=== PATIENT | female | born 1945 | race Caucasian/White ===

== ENCOUNTER 2021-04-04 10:52 | Inpatient (IN) | payer OTHER ==
[2021-04-04 11:37] LABS: Basophils % 0.2 % (0-1.3); Hematocrit 43.4 % (36.0-45.0); MPV 6.9 fL (7.6-11.3)
[2021-04-04 11:40] LABS: Protime INR 0.99
[2021-04-04 11:58] LABS: ALT/SGPT 19 U/L (12-78); AST/SGOT 11 U/L (15-37); Albumin 3.6 g/dL (3.4-5.0); Alkaline Phosphatase 63 U/L (45-117); BUN Blood Urea Nitrogen 14 mg/dL (7-18); Bicarbonate 28 mmol/L (21-32); Bilirubin Direct 0.1 mg/dL (0-0.2); Bilirubin Total 0.3 mg/dL (0.2-1.0); Glucose Level 105 mg/dL (74-106); Magnesium 2.1 mg/dL (1.8-2.4); NT PRO-BNP 159 pg/mL (<450); Potassium 3.9 mmol/L (3.5-5.1); Protein, Total 7.6 g/dL (6.4-8.2); Sodium Level 142 mmol/L (136-145); Troponin (Emerg Dept Use Only) < 0.02 ng/mL (0.0-0.045)
--- NOTE | 2021-04-04 12:13 | RAD REPORT ---
EXAM DESCRIPTION: Piedad Single View04/04/2021 11:48 am CLINICAL HISTORY: Chest pain COMPARISON: none FINDINGS: The bilateral interstitial lung opacities probably are chronic. The lungs appear clear of acute infiltrate. The heart is probably mildly enlarged IMPRESSION: No acute abnormalities displayed
--- NOTE | 2021-04-04 13:23 | ER ---
Nurse's Notes [facility] Name: Maritza Ulrich Age: 75 yrs Sex: Female : 1945 Arrival Date: 04/04/2021 Time: 10:54 Bed 30 Private MD: Alicia Castillo Diagnosis: Unstable angina;Chest pain, unspecified Presentation: 04/04 11:05 Chief complaint: Patient states: Mid chest pressure off/on for 2-3 weeks. Awoke at 2 am ll1 with CP and arms tingling, hands feel cold. "Sinus thing" started yesterday with slight cough. Coronavirus screen: Vaccine status: Patient reports being unvaccinated. Client denies travel out of the [place] in the last 14 days. congestion, cough unrelated to allergies, Client presents with at least one sign or symptom that may indicate coronavirus-19. Standard/surgical mask placed on the client. Ebola Screen: Patient denies travel to an Ebola-affected area in the 21 days before illness onset. Initial Sepsis Screen: Does the patient meet any 2 criteria? No. Patient's initial sepsis screen is negative. Does the patient have a suspected source of infection? No. Patient's initial sepsis screen is negative. Risk Assessment: Do you want to hurt yourself or someone else? Patient reports no desire to harm self or others. Onset of symptoms was March 21, 2021. 11:05 Method Of Arrival: Ambulatory ll1 11:05 Acuity: JUANITA 3 ll1 Triage Assessment: 11:44 General: Appears in no apparent distress. comfortable, slender, well groomed, Behavior jh5 is calm, cooperative. Pain: Complains of pain in chest. Historical: - Allergies: 11:02 Iodinated Contrast Media - IV Dye; ll1 - PMHx: 11:02 Hypothyroidism; ll1 - PSHx: 11:02 None; ll1 - Immunization history:: Client reports having NOT received the Covid vaccine. - Social history:: Smoking status: Patient denies any tobacco usage or history of. - Family history:: not pertinent. - Hospitalizations: : No recent hospitalization is reported. Screenin:35 Abuse screen: Denies threats or abuse. Denies injuries from another. Nutritional ss screening: No deficits noted. Tuberculosis screening: Never had TB. 11:44 Fall Risk Secondary diagnosis (15 points) intermediate onset chest pain. . IV access jh5 (20 points). Assessment: 11:27 Pain: Pain radiates to chest Pain began suddenly, on and off x3 weeks. Cardiovascular: jh5 Reports chest pain, Capillary refill < 3 seconds Patient's skin is warm and dry. 18:06 Reassessment: Report given to second floor rn who did not disclose his (male) name. jh5 Information from SBAR given to RN regarding pt. 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 Pt to be transported upstairs at this time; pt is Vitally stable, AAOX4, speech is clear and in NAD. Vital Signs: 11:05 Weight 68.95 kg; Height 5 ft. 4 in. (162.56 cm); Pain 2/10; ll1 11:14 BP 156 / 76; Pulse 67; Resp 18; Temp 98.4; Pulse Ox 100% ; jh5 12:22 Pulse 58; Resp 15; Pulse Ox 98% ; jh5 13:37 BP 134 / 78; Pulse 68; Resp 18; Pulse Ox 100% ; jh5 16:18 BP 155 / 53; Pulse 67; Resp 15; Pulse Ox 98% ; jh5 18:12 BP 136 / 68; Pulse 67; Resp 18; Pulse Ox 98% ; jh5 11:05 Body Mass Index 26.09 (68.95 kg, 162.56 cm) ll1 ED Course: 10:54 Patient arrived in ED. as 10:54 Nahid Lewis MD is Private Physician. as 10:54 Alicia Castillo MD is Private Physician. as 10:58 Rolando Barber MD is Attending Physician. rn 11:02 Arm band placed on Patient placed in an exam room, on a stretcher. ll1 11:07 Triage completed. ll1 11:28 Patient maintains SpO2 saturation greater than 95% on room air. jh5 11:29 No provider procedures requiring assistance completed. jh5 11:35 Patient has correct armband on for positive identification. Bed in low position. Call ss light in reach. residential monitor on. Pulse ox on. NIBP on. 11:35 Inserted saline lock: 22 gauge in left antecubital area, using aseptic technique. Blood ss collected. 11:48 XRAY Chest (1 view) In Process Unspecified. EDMS 13:22 Elizabeth Cat MD is Hospitalizing Provider. rn 15:58 Elizabeth Cat MD is Hospitalizing Provider. rn Administered Medications: 13:36 Drug: Aspirin Chewable Tablet 324 mg Route: PO; [facility] Outcome: 11:44 Condition: good [facility] 11:44 Instructed on the need for admit, safety practices, Need for COVID swab 15:59 Decision to Hospitalize by Provider. rn 18:32 Patient left the ED. ss Signatures: Dispatcher [employer] EDMS Caroline Hoff Roman, MD MD rn Smirch, Shelby, RN RN ss Lewis, Lynsay, RN RN 1 Lyla Conn RN RN 5 Corrections: (The following items were deleted from the chart) 11:05 11:02 Allergies: Iodine; ll1 ll1 15:48 15:44 Patient did not have IV access during this emergency room visit. [place] [id number] 15:48 13:22 Decision to Hospitalize by Provider. rn [facility] 15:48 15:44 Discharged to home ambulatory, with family, [place] [id number] 15:48 15:46 Discharge ordered by . [place] [id number] 15:48 15:46 Patient left the ED. [place] [id number]
--- NOTE | 2021-04-04 13:23 | EDPHYS ---
Physician Documentation [facility] Name: Maritza Ulrich Age: 75 yrs Sex: Female : 1945 Arrival Date: 04/04/2021 Time: 10:54 Bed 30 Private MD: Alicia Castillo ED Physician Rolando Barber HPI: 04/04 11:14 This 75 yrs old Female presents to ER via Ambulatory with complaints of Chest rn Pain, Numbness Of Arm. 11:14 The patient or guardian reports chest pain that is located primarily in the substernal rn area. Onset: 2 week(s) ago. The pain radiates to both arms. Associated signs and symptoms: Pertinent positives: shortness of breath, Pertinent negatives: abdominal pain, cough, diaphoresis, dizziness, lower extremity swelling, nausea, palpitations. The chest pain is described as a pressure. Duration: The patient or guardian reports multiple episodes, that are intermittent, the episodes last approximately 15 minute(s). Modifying factors: The symptoms are alleviated by nothing. the symptoms are aggravated by exertion. Severity of pain: At its worst the pain was moderate in the emergency department the pain has improved. The patient has not experienced similar symptoms in the past. The patient has not recently seen a physician. Patient reports substernal chest pressure that radiates to both arms, intermittent and lasting approximately 15 minutes is over the last 2 weeks. No fever. No trauma. Reports associated shortness of breath with episodes. Last had a heart cath 5 years ago and had a nonstent to the lesion. Reports increasing in occurrence and frequency.. Historical: - Allergies: 11:02 Iodinated Contrast Media - IV Dye; ll1 - PMHx: 11:02 Hypothyroidism; ll1 - PSHx: 11:02 None; ll1 - Immunization history:: Client reports having NOT received the Covid vaccine. - Social history:: Smoking status: Patient denies any tobacco usage or history of. - Family history:: not pertinent. - Hospitalizations: : No recent hospitalization is reported. ROS: 11:14 Constitutional: Negative for fever, chills, and weight loss, Eyes: Negative for injury, rn pain, redness, and discharge, Neck: Negative for injury, pain, and swelling, Cardiovascular: Positive for chest pain Respiratory: Positive for shortness of breath Abdomen/GI: Negative for abdominal pain, nausea, vomiting, diarrhea, and constipation, Back: Negative for injury and pain, : Negative for injury, bleeding, discharge, and swelling, MS/Extremity: Negative for injury and deformity, Skin: Negative for injury, rash, and discoloration, Neuro: Negative for headache, weakness, numbness, tingling, and seizure. Exam: 11:12 ECG was reviewed by the Attending Physician. rn 11:14 Constitutional: This is a well developed, well nourished patient who is awake, alert, rn and in no acute distress. Ambulatory to room Head/Face: Normocephalic, atraumatic. Eyes: Pupils equal round and reactive to light, extra-ocular motions intact. Lids and lashes normal. Conjunctiva and sclera are non-icteric and not injected. Cornea within normal limits. Periorbital areas with no swelling, redness, or edema. ENT: No stridor Cardiovascular: Regular rate and rhythm. No pulse deficits. Respiratory: No increased work of breathing, no retractions or nasal flaring. Abdomen/GI: Soft, non-tender Skin: Warm, dry MS/ Extremity: Pulses equal, no cyanosis Neuro: Awake and alert, GCS 15 Vital Signs: 11:05 Weight 68.95 kg; Height 5 ft. 4 in. (162.56 cm); Pain 2/10; ll1 11:14 BP 156 / 76; Pulse 67; Resp 18; Temp 98.4; Pulse Ox 100% ; jh5 12:22 Pulse 58; Resp 15; Pulse Ox 98% ; jh5 13:37 BP 134 / 78; Pulse 68; Resp 18; Pulse Ox 100% ; jh5 16:18 BP 155 / 53; Pulse 67; Resp 15; Pulse Ox 98% ; jh5 18:12 BP 136 / 68; Pulse 67; Resp 18; Pulse Ox 98% ; jh5 11:05 Body Mass Index 26.09 (68.95 kg, 162.56 cm) ll1 MDM: 10:58 Patient medically screened. rn 13:18 Differential diagnosis: acute myocardial infarction, coronary artery disease pleurisy, rn pneumonia, pneumothorax, stable angina, unstable angina. HEART Score: History: Highly Suspicious (2), ECG: Normal (0), Age: > or = 65 years (2), Risk Factors: 1 or 2 risk factors (1), Troponin: < or = 1 x Normal Limit (0), Total Score = 5. The patient was given aspirin in the Emergency Department. JEFERSON Risk Score: 1 - patient's age is greater or equal to 65 years. Data reviewed: vital signs, nurses notes, lab test result(s), EKG, radiologic studies, plain films, and as a result, I will admit patient. 13:21 Data interpreted: gambling monitor: rate is 58 beats/min, rhythm is sinus bradycardia, rn with no ectopy, Interpretation: bradycardia, Pulse oximetry: on room air is 98 %. Interpretation: normal. Counseling: I had a detailed discussion with the patient and/or guardian regarding: the historical points, exam findings, and any diagnostic results supporting the discharge/admit diagnosis, lab results, radiology results, the need for further work-up and treatment in the hospital. Admission orders: after a detailed discussion of the patient's condition and case, the admit orders are written by me. Special discussion:. 15:39 ED course: Pt notified by registration that her insurance would pay 60% of admission, rn patient states ok being admitted here and will pay the difference. . 04/04 11:09 Order name: Basic Metabolic Panel; Complete Time: 12:55 rn 04/04 11:09 Order name: CBC with Diff; Complete Time: 12:55 rn 04/04 11:09 Order name: LFT's; Complete Time: 12:55 rn 04/04 11:09 Order name: Magnesium; Complete Time: 12:55 rn 04/04 11:09 Order name: NT PRO-BNP; Complete Time: 12:55 rn 04/04 11:09 Order name: PT-INR; Complete Time: 12:55 rn 04/04 11:09 Order name: Troponin (emerg Dept Use Only); Complete Time: 12:55 rn 04/04 11:09 Order name: COVID-19 SARS RT PCR (Document "Date of Onset" if Symptomatic); Complete rn Time: 13:04/04 16:45 Order name: Basic Metabolic Panel [facility] 04/04 16:46 Order name: Basic Metabolic Panel [facility] 04/04 16:46 Order name: Lipid Profile [facility] 04/04 16:46 Order name: Lipid Profile [facility] 04/04 16:46 Order name: PTT, Activated Partial Thromb [facility] 04/04 16:46 Order name: PTT, Activated Partial Thromb [facility] 04/04 11:09 Order name: XRAY Chest (1 view); Complete Time: 12:55 rn 04/04 11:09 Order name: EKG; Complete Time: 11:10 rn 04/04 11:09 Order name: Cardiac monitoring; Complete Time: 11:14 rn 04/04 11:09 Order name: EKG - Nurse/Tech; Complete Time: 11:14 rn 04/04 11:09 Order name: IV Saline Lock; Complete Time: 11:35 rn 04/04 16:09 Order name: Diet Heart Healthy; Complete Time: 16:10 aa5 04/04 16:45 Order name: CONS Physician Consult [facility] 04/04 16:45 Order name: Echo with Doppler [facility] 04/04 16:45 Order name: EKG Electrocardiogram [facility] 04/04 16:46 Order name: Troponin I [facility] 04/04 16:46 Order name: Troponin I [facility] 04/04 16:46 Order name: Troponin I [facility] 04/04 16:46 Order name: EKG Electrocardiogram [facility] 04/04 16:46 Order name: CBC with Automated Diff ED[facility] 04/04 16:46 Order name: CBC with Automated Diff [facility] 04/04 11:09 Order name: Labs collected and sent; Complete Time: 11:27 rn 04/04 11:09 Order name: O2 Per Protocol; Complete Time: 11:14 rn 04/04 11:09 Order name: O2 Sat Monitoring; Complete Time: 11:14 rn EC:12 Rate is 66 beats/min. Rhythm is regular. QRS [place] is Normal. TN interval is normal. QRS rn interval is normal. QT interval is normal. No Q waves. T waves are Normal. No ST changes noted. Clinical impression: Normal ECG. Interpreted by me. Reviewed by me. Administered Medications: 13:36 Drug: Aspirin Chewable Tablet 324 mg Route: PO; jh5 Disposition Summary: 04/04/21 15:59 Hospitalization Ordered Hospitalization Status: Observation(04/04/21 15:59) rn Provider: Elizabeth Cat(04/04/21 15:59) rn Location: Telemetry/MedSurg (observation)(04/04/21 15:59) rn Condition: Stable(04/04/21 15:59) rn Problem: new(04/04/21 15:59) rn Symptoms: have improved(04/04/21 15:59) rn Bed/Room Type: Standard(04/04/21 15:59) rn Room Assignment: 219(04/04/21 17:13) bd Diagnosis - Unstable angina(04/04/21 15:59) rn - Chest pain, unspecified rn Forms: - Medication Reconciliation Form rn - SBAR form rn Signatures: Dispatcher [employer] EDParadise Ball Roman, MD MD rn Lewis, Lynsay RN RN 1 Lyla Conn, RN RN 5 Corrections: (The following items were deleted from the chart) 11:05 11:02 Allergies: Iodine; ll1 ll1 15:44 13:22 Inpatient Admission rn 5 15:44 13:22 Elizabeth Cat rn 5 15:44 13:22 Telemetry/MedSurg (Inpatient) rn jh5 15:44 13:22 Stable rn jh5 15:44 13:22 new rn 5 15:44 13:22 have improved rn jh5 15:44 13:22 Standard rn 5 15:44 13:22 rn 5 15:44 13:22 Unstable angina rn jh5 15:47 15:46 Home jh5 5 15:47 15:46 Stable jh5 5 15:47 15:46 Unspecified symptoms and signs involving the musculoskeletal system jh5 5 17:13 15:59 rn bd
[2021-04-04] MEDS ORDERED: ASPIRIN 81 MG CHEWABLE TABLET ONE (13:28)
[2021-04-04] MEDS ORDERED: MORPHINE 4 MG/ML SYR IV PRN (16:41)
[2021-04-04] MEDS ORDERED: ACETAMINOPHEN 500 MG TAB PO PRN (16:41)
[2021-04-04] MEDS: METOPROLOL TAR 50 MG TAB PO SCH (18:00)
--- NOTE | 2021-04-04 19:10 | P.HP ---
Certification for Inpatient Patient admitted to: Observation With expected LOS: <2 Midnights Patient will require the following post-hospital care: None Practitioner: I am a practitioner with admitting privileges, knowledge of patient current condition, hospital course, and medical plan of care. Services: Services provided to patient in accordance with Admission requirements found in Title 42 Section 412.3 of the Code of Federal Regulations Patient History Date of Service: 04/04/21 Reason for admission: Chest pain rule out acute coronary syndrome History of Present Illness: Patient is a 75-year-old female came to the hospital with chest discomfort. Pain was mainly in the sternal region. Patient has been having chest pain on and off the last few weeks. Patient's symptoms are not really improving. She came into the ER for further evaluation. In the ER her initial troponins were unremarkable an EKG was unremarkable as well. Since patient's clinical symptoms were not really improving decision was made to admit the patient to the hospital. Patient was admitted to the hospital and will be ruled out for acute coronary syndrome. Concern for unstable angina and will go ahead and proceed with stress test in a.m.. Consult Cardiology as well. Allergies iodine Allergy (Verified 04/04/21 23:54) Itching/Hives/Rash Home Medications: Thyroid,Pork [[place] Thyroid] 90 mg PO DAILY 04/04/21 - Past Medical/Surgical History -: Hypertension -: Thyroid storm -: Thyroidectomy - Family History Father Family History: Reviewed- Non-Contributory - Social History Smoking Status: Never smoker Alcohol use: No CD- Drugs: No Review of Systems 10-point ROS is otherwise unremarkable Physical Examination - Vital Signs Temperature: 98.4 F Blood Pressure: 134/78 Pulse: 68 Respirations: 18 - Physical Exam General: Alert, In no apparent distress, Oriented x3 HEENT: Atraumatic, PERRLA, Mucous membr. moist/pink, EOMI, Sclerae nonicteric Neck: Supple, 2+ carotid pulse no bruit, No LAD, Without JVD or thyroid abnormality Respiratory: Clear to auscultation bilaterally, Normal air movement Cardiovascular: Regular rate/rhythm, Normal S1 S2 Gastrointestinal: Normal bowel sounds, No tenderness Musculoskeletal: No tenderness Integumentary: No rashes Neurological: Normal gait, Normal speech, Normal strength at 5/5 x4 extr, Normal tone, Normal affect Lymphatics: No axilla or inguinal lymphadenopathy - Studies Laboratory Data (last 24 hrs) 04/04/21 11:20: PT 11.4, INR 0.99 04/04/21 11:20: WBC 4.70, Hgb 14.8, Hct 43.4, Plt Count 126 L 04/04/21 11:20: Sodium 142, Potassium 3.9, BUN 14, Creatinine 0.77, Glucose 105, Magnesium 2.1, Total Bilirubin 0.3, AST 11 L, ALT 19, Alkaline Phosphatase 63 Assessment & Plan - Problems (Diagnosis) (1) Chest pain, rule out acute myocardial infarction Current Visit: Yes Status: Acute (2) Unstable angina Current Visit: Yes Status: Acute (3) History of thyroidectomy Current Visit: Yes Status: Acute (4) Hypertension Current Visit: Yes Status: Acute - Plan 1. Serial troponins and EKG 2. Appreciate Cardiology consultation 3. Echocardiogram and stress test 4. Anti-platelet therapy, anti coagulation, beta-ariadna, statin, and O2 as needed 5. IV morphine for pain 6. Nitro p.r.n. Discharge Plan: Home Plan to discharge in: Greater than 2 days - Advance Directives Does patient have a Living Will: No Does patient have a Durable POA for Healthcare: No - Code Status/Comfort Care Code Status Assessed: Yes Code Status: Full Code Critical Care: No Time Spent Managing PTS Care (In Minutes): 45
[2021-04-04] MEDS: ALPRAZOLAM 0.25 MG TABLET PO PRN (23:34)
[2021-04-05 00:16] VITALS: BMI 26.1
[2021-04-05 04:21] LABS: BUN Blood Urea Nitrogen 15 mg/dL (7-18); Bicarbonate 26 mmol/L (21-32); Glucose Level 111 mg/dL (74-106); HDL Cholesterol 64 mg/dL (40-60); LDL Cholesterol, Calculated 109 (<130); Potassium 3.7 mmol/L (3.5-5.1); Sodium Level 141 mmol/L (136-145); Troponin I < 0.02 ng/mL (0.0-0.045)
[2021-04-05 04:25] LABS: Absolute Lymphocytes (CBC) 1.2 K/uL (0.7-4.9); Basophils % 0.3 % (0-1.3); Hematocrit 39.3 % (36.0-45.0); Lymphocytes % 27.3 % (15.3-44.8); MPV 6.9 fL (7.6-11.3); RBC Red Blood Cell Count 3.91 M/uL (3.86-4.86)
[2021-04-05] MEDS: IBUPROFEN 400 MG TAB PO PRN ×2 (05:14→22:39)
[2021-04-05] MEDS ORDERED: REGADENOSON 0.4 MG/5 ML SYR IV ONE (07:35)
[2021-04-05] MEDS ORDERED: PNEUMOCOCCAL VACCINE 0.5 ML IMVAC ONE (08:00)
[2021-04-05] MEDS: ASPIRIN EC 81 MG TAB PO SCH (08:14)
[2021-04-05] MEDS: METOPROLOL TAR 50 MG TAB PO SCH ×2 (08:14→20:30)
[2021-04-05] MEDS ORDERED: ENOXAPARIN 40 MG/0.4 ML SQ SCH (09:00)
--- NOTE | 2021-04-05 11:25 | RAD REPORT ---
EXAM DESCRIPTION: NM - Rest Stress Cardiac Imaging - 04/05/2021 10:32 am CLINICAL HISTORY: Chest pain. COMPARISON: None. TECHNIQUE: The patient was administered 10. mCi of Tc 99m Sestamibi prior to resting SPECT imaging o f the heart. The patient was then administered 30. MCi of Tc 99m Sestamibi following exercise or pha rmacologic stress. Multiplanar SPECT images were reviewed. FINDINGS: Small, mild area of diminished radiotracer uptake involves the inferior left ventricular m yocardium on stress sequences. This area has normal radiotracer uptake on rest sequences. Remainder the exam unremarkable The left ventricular ejection fraction equals 58% IMPRESSION: Small, mild area of diminished radiotracer uptake involving the inferior left ventricula r myocardium may indicate stress-induced ischemia. Another consideration is that it is secondary to a ttenuation from diaphragm
--- NOTE | 2021-04-05 20:09 | CON ---
Reason For Consultation: Chest pain. History Of Present Illness: This is a 75-year-old female, history of mild coronary artery disease as per her report on a cath done about 5 years ago, presented with pressure-like chest pain, woke up wi th heaviness on her chest like an elephant sitting on it, radiating to left upper extremity with some nausea. Had a stress test that showed inferior ischemia. She is chest-pain free at the present homero e. Past Medical History: None. Medications: None. Allergies: IODINE. Family History: No premature coronary artery disease or cancer. Social History: Does not smoke or drink. Does not use any drugs. Review of Systems: All systems reviewed and they are negative except as mentioned in HPI. Physical Examination: Vital Signs: Reviewed. Head and Neck: Pupils are equal and reactive to light. Intact eye movements. No JVD. No cervical lymphadenopathy. Neck: Supple. Thyroid is not enlarged. Lungs: Clear to auscultation bilaterally. No rhonchi, rales, or crackles. No accessory muscle use. Heart: Regular rate and rhythm. No extra sounds. Abdomen: Soft, nontender. Bowel sounds positive. No organomegaly. No masses or hernia. No rigidi ty or rebound. Extremities: No edema, clubbing, or cyanosis. Intact pulses. Skin: No rashes. Neurologic: Alert and oriented x3. No acute process. Investigations: Labs were reviewed. All her troponins are negative. Assessment And Recommendations: Unstable angina with typical symptoms with abnormal stress test. Ke ep n.p.o. past midnight and coronary angiogram in the morning. Keep her on aspirin and blood pressur e control. Thank you for the consult. /LETICIA Voice ID: [id number] Report ID: [id number]
[2021-04-05] MEDS: ALPRAZOLAM 0.25 MG TABLET PO PRN (22:07)
--- NOTE | 2021-04-06 03:07 | P.PN ---
Subjective Date of Service: 04/05/21 Patient stress test was positive for some reversible ischemia. Patient is having some chest pain on and off still. I spoke with Cardiology and they want a proceed with heart catheterization in the morning. Concern for unstable angina Review of Systems 10-point ROS is otherwise unremarkable Physical Examination - Vital Signs Temperature: 98.4 F Blood Pressure: 134/78 Pulse: 68 Respirations: 18 Pulse Ox (%): 94 - Physical Exam General: Alert, In no apparent distress, Oriented x3 Respiratory: Clear to auscultation bilaterally, Normal air movement Cardiovascular: Regular rate/rhythm, Normal S1 S2, No murmurs Gastrointestinal: Normal bowel sounds, Soft and benign, Non-distended, No tenderness Musculoskeletal: No clubbing, No swelling, No tenderness Neurological: Sensation intact, Cranial nerves 3-12 intact - Studies Medications List Reviewed: Yes Assessment & Plan - Problems (Diagnosis) (1) Chest pain, rule out acute myocardial infarction Current Visit: Yes Status: Acute (2) Unstable angina Current Visit: Yes Status: Acute (3) History of thyroidectomy Current Visit: Yes Status: Acute (4) Hypertension Current Visit: Yes Status: Acute - Plan 1. Serial troponins and EKG 2. Appreciate Cardiology consultation and will proceed with coronary angiogram in the morning 3. Stress test with reversible ischemia 4. Continue with Anti-platelet therapy, anti coagulation, beta-ariadna, statin, and O2 as needed 5. IV morphine for pain 6. Nitro p.r.n. Discharge Plan: Home Plan to discharge in: Greater than 2 days - Advance Directives Does patient have a Living Will: No Does patient have a Durable POA for Healthcare: No - Code Status/Comfort Care Code Status: Full Code Critical Care: No Time Spent Managing PTS Care (In Minutes): 35
--- NOTE | 2021-04-06 07:35 | TREADPHA ---
DX: CHEST PAIN Date of Study: 04/05/2021 Ht: 5' 4 " Wt: 152 lb 0 oz Consulting Physician: FRANNY MEDICATIONS: LOVENOX, XANAX, ASPIRIN, LOPRESSOR HISTORY: HYPOTHYROID PHYSICIAL EXAMINATION: RESTING B.P.: 130/61 RESTING H.R.: 45 RESTING EKG: NORMAL PROTOCOL: LEXISCAN EXERCISE TIME: 3:30 B.P. AT PEAK STRESS: 119/62 IMPRESSION: LEXISCAN STRESS TEST PREFORMED. CARDIOLITE INJECTED PER PROTOCOL. SEE NUCLEAR MEDICINE REPORT. NO SUPRAVENTRICULAR OR VENTRICULAR TACHYCARDIA NOTED. NO EKG CHANGES WITH LEXISCAN.
--- NOTE | 2021-04-06 08:13 | ECHO ---
HEIGHT: 5 ft 4 in WEIGHT: 152 lb 0 oz DATE OF STUDY: 04/05/[address]: Elizabeth Cat MD 2-DIMENSIONAL: YES M.MODE: YES DOPPLER: YES COLOR FLOW: YES TDS: NO PORTABLE: NO DEFINITY: NO BUBBLE STUDY: NO DIAGNOSIS: CHEST PAIN RULE OUT ACS CARDIAC HISTORY: CATHERIZATION: YES SURGERY: NO PROSTHETIC VALVE: NO PACEMAKER: NO MEASUREMENTS (cm) DIASTOLIC (NORMALS) SYSTOLIC (NORMALS) IVSd 1.1 (0.6-1.2) LA Diam 2.5 (1.9-4.0) LVEF 55% LVIDd 4.5 (3.5-5.7) LVIDs 3.2 (2.0-3.5) %FS 28% LVPWd 1.1 (0.6-1.2) Ao Diam 2.5 (2.0-3.7) 2 DIMENSIONAL ASSESSMENT: RIGHT ATRIUM: NORMAL LEFT ATRIUM: NORMAL RIGHT VENTRICLE: NORMAL LEFT VENTRICLE: NORMAL TRICUSPID VALVE: MITRAL VALVE: PULMONIC VALVE: AORTIC VALVE: PERICARDIAL EFFUSION: NONE AORTIC ROOT: NORMAL LEFT VENTRICULAR WALL MOTION: NORMAL DOPPLER/COLOR FLOW: SEE BELOW COMMENTS: NORMAL LEFT VENTRICULAR EJECTION FRACTION 55-60%. NORMAL WALL MOTION. MODERATE AORTIC REGURGITATION. MILD MITRAL, TRICUSPID AND PULMONARY REGURGITATION. TECHNOLOGIST: Lucrecia MONTEJO
[2021-04-06] MEDS: ASPIRIN EC 81 MG TAB PO SCH (08:49)
[2021-04-06] MEDS: METOPROLOL TAR 50 MG TAB PO SCH (08:51)
[2021-04-06] MEDS ORDERED: FLUTICASONE 50MCG NASAL SPRAY NAS SCH (11:30)
[2021-04-06] MEDS ORDERED: HEPA 1000U/500MLS 2,000 UNIT/1,000 ML BAG IV ONE (12:58)
[2021-04-06] MEDS ORDERED: LIDOCAINE 1% 20 ML MDV ONE (12:58)
[2021-04-06] MEDS ORDERED: FENTANYL CITR 100 MCG/2 ML ONE (13:53)
[2021-04-06] MEDS ORDERED: VERAPAMIL HCL 10 MG/4 ML VIAL IV ONE (13:53)
[2021-04-06] MEDS ORDERED: MIDAZOLAM HCL 5 ML ONE (13:53)
[2021-04-06] MEDS ORDERED: ATROPINE SULF 1 MG/10 ML SYR IV ONE (13:53)
[2021-04-06] MEDS ORDERED: HEPARIN 5000 UNIT/ML 1 ML VIAL ONE (13:53)
[2021-04-06] MEDS ORDERED: NA CHLORIDE 0.9% 500 ML ONE (13:59)
[2021-04-06] MEDS ORDERED: METHYLPREDNISOLONE 125 MG INJ ONE (14:00)
[2021-04-06] MEDS ORDERED: DIPHENHYDRAMINE 50 MG/ML VIAL ONE (14:00)
[2021-04-06 14:03] VITALS: TEMP 96.8
[2021-04-06] MEDS ORDERED: TICAGRELOR 90 MG TABLET PO ONE (14:14)
--- NOTE | 2021-04-06 17:30 | P.PN ---
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 Stenting was being attempted. Patient is out of network and will need to be transferred. Review of Systems 10-point ROS is otherwise unremarkable Physical Examination - Vital Signs Reviewed - Physical Exam General: Alert, In no apparent distress, Oriented x3 Respiratory: Clear to auscultation bilaterally, Normal air movement Cardiovascular: Regular rate/rhythm, Normal S1 S2, No murmurs Gastrointestinal: Normal bowel sounds, Soft and benign, Non-distended, No tenderness Musculoskeletal: No clubbing, No swelling, No tenderness Neurological: Sensation intact, Cranial nerves 3-12 intact - Studies Medications List Reviewed: Yes Assessment & Plan - Problems (Diagnosis) (1) Chest pain, rule out acute myocardial infarction Current Visit: Yes Status: Acute (2) Unstable angina Current Visit: Yes Status: Acute (3) History of thyroidectomy Current Visit: Yes Status: Acute (4) Hypertension Current Visit: Yes Status: Acute - Plan Continue plan of care as mentioned below 1. Will need to transfer to tertiary care facility for cardiac catheterization 2. Appreciate Cardiology consultation 3. Stress test with reversible ischemia 4. Continue with Anti-platelet therapy, anti coagulation, beta-ariadna, statin, and O2 as needed 5. IV morphine for pain 6. Nitro p.r.n.
[2021-04-06 18:13] VITALS: O2SAT 95
[2021-04-06 19:44] VITALS: BP 142/68
--- NOTE | 2021-04-07 00:47 | OP ---
Date of Procedure: 04/06/2021 Surgeon: YEYO BLANTON Procedure Performed: Selective coronary angiogram. Indication: Unstable angina. Access: Right radial artery 6-Croatian, closed with TR band. Complications: None. Bleeding: Less than 10 mL. Description Of Procedure: After risks, benefits, alternatives were explained, the patient agreed to proceed and signed informed consent. Then, we accessed right radial artery using pediatric micropunc ture kit to place a 6-Croatian slender sheath. Took a 5-Croatian [place] 4.0 catheter into the aortic root , engaged left main, right coronary artery, took standard views and then exchanged for a 6-[place]atian JR4 guide into the aortic root, engaged the RCA and took a short run-through wire into the RCA crossing the proximal limit area of stenosis. Then I tried to pass balloon. However, the mid RCA lesion was heavily calcified and no balloons will pass and decided to abort the procedure and plan for CSI ather ectomy followed by PCI to be done in [place]. We removed the wires and the catheter. Took final ang iogram and no complications. Then, removed the catheter and removed the sheath and placed TR band. Findings: 1.Left main, large, normal LAD, moderate to large-sized and in midportion has about 50 to 60% stenos is. 2.Left circumflex was normal. 3.RCA, large dominant, heavily calcified, proximal 90% stenosis and then extremely calcified mid ana nosis that is ranging between 95 to 99%. Could not cross any balloons throughout the second lesion. Plan: Transfer to [place] for CSI atherectomy followed by PCI of RCA. SR/MODL Voice ID: [id number] Report ID: [id number]
== END 2021-04-06 20:14 | disposition short-term general hospital (02) | DRG 287 ==
LOC: ER 10:52 → ERHOLD 16:41 → 2ND 18:14 → OBSVTOIN 04-06 07:44
PROVIDERS: ADMIT Hospitalist; ATTEND Hospitalist
PROC: B201YZZ Plain Radiography of Multiple Coronary Arteries using Other Contrast (ICD-10-PCS; principal; 2021-04-06)
DX: I25.110 Atherosclerotic heart disease of native coronary artery with unstable angina pectoris (principal); I25.84 Coronary atherosclerosis due to calcified coronary lesion; I10 Essential (primary) hypertension; Z20.822 Contact with and (suspected) exposure to COVID-19
CPT/HCPCS: 36415; 71045; 78452; 80048; 80061; 80076; 82947; 83735; 83880; 84484; 85025; 85347; 85610; 85730; 93005; 93017; 93306; 93454; 99285; A9500; C1893; G0378; J1200; J1644; J1650; J2250; J2785; J2930; J3010; J7040; U0003